=== PATIENT | female | born 1980 | race Caucasian/White ===

== ENCOUNTER 2020-10-02 12:24 | Emergency (ER) | payer OTHER ==
[2020-10-02] MEDS ORDERED: IBUPROFEN 600 MG TAB PO STA (12:46)
[2020-10-02] MEDS ORDERED: ACETAMINOPHEN TAB 500 MG TAB PO STA (12:46)
--- NOTE | 2020-10-02 12:50 | ED ---
General Adult HPI - General Source: patient, RN notes reviewed Mode of arrival: wheelchair Limitations: no limitations <Edilson Pedroza - Last Filed: 10/02/20 12:48> <Arsh Browne - Last Filed: 10/02/20 16:27> - General Stated complaint: Cough, INDU Time Seen by Provider: 10/02/20 12:45 - History of Present Illness Initial comments: 40-year-old female presents emergency Department chief complaint cough congestion. Patient states she's been sick for 2 weeks but states that she started new symptoms last few days. Patient's had fevers or chills body aches cough congestion. Patient does have a history of hyperlipidemia diabetes and hypertension. Patient has not taken any recent Tylenol Motrin for fever. Patient does not know she had a fever currently. (Edilson Pedroza) - Related Data Previous Rx's Medication Instructions Recorded metFORMIN HCL [Glucophage] 500 mg PO BID #30 tab 02/14/15 Allergies Allergy/AdvReac Type Severity Reaction Status Date / Time No Known Allergies Allergy Verified 10/02/20 12:48 Review of Systems ROS Other: All systems not noted in ROS Statement are negative. <Edilson Pedroza - Last Filed: 10/02/20 12:48> ROS Other: All systems not noted in ROS Statement are negative. <Arsh Browne - Last Filed: 10/02/20 16:27> ROS Statement: Those systems with pertinent positive or pertinent negative responses have been documented in the HPI. Past Medical History Past Medical History: Diabetes Mellitus Additional Past Medical History / Comment(s): HX OF NAUSEA AND VOMITING . History of Any Multi-Drug Resistant Organisms: None Reported Past Surgical History: No Surgical Hx Reported Past Anesthesia/Blood Transfusion Reactions: Motion Sickness Additional Past Anesthesia/Blood Transfusion Reaction / Comment(s): PT HAS NEVER HAD ANESTHESIA. Past Psychological History: No Psychological Hx Reported Smoking Status: Never smoker Past Alcohol Use History: Rare Past Drug Use History: None Reported - Past Family History Mother Family Medical History: No Reported History <Edilson Pedroza - Last Filed: 10/02/20 12:48> General Exam Limitations: no limitations General appearance: alert, in no apparent distress Head exam: Present: atraumatic, normocephalic, normal inspection Eye exam: Present: normal appearance, PERRL, EOMI. Absent: scleral icterus, conjunctival injection, periorbital swelling ENT exam: Present: normal exam, normal oropharynx, mucous membranes moist Neck exam: Present: normal inspection, full ROM. Absent: tenderness, meningismus, lymphadenopathy Respiratory exam: Present: normal lung sounds bilaterally. Absent: respiratory distress, wheezes, rales, rhonchi, stridor Cardiovascular Exam: Present: normal rhythm, tachycardia, normal heart sounds. Absent: systolic murmur, diastolic murmur, rubs, gallop, clicks Neurological exam: Present: alert, oriented X3 <Edilson Pedroza - Last Filed: 10/02/20 12:48> General appearance: alert, in no apparent distress Head exam: Present: atraumatic, normocephalic, normal inspection Eye exam: Present: normal appearance, PERRL, EOMI. Absent: scleral icterus, conjunctival injection, periorbital swelling ENT exam: Present: normal exam, mucous membranes moist Neck exam: Present: normal inspection. Absent: tenderness, meningismus, lymphadenopathy Respiratory exam: Present: normal lung sounds bilaterally. Absent: respiratory distress, wheezes, rales, rhonchi, stridor Cardiovascular Exam: Present: regular rate, normal rhythm, normal heart sounds. Absent: systolic murmur, diastolic murmur, rubs, gallop, clicks GI/Abdominal exam: Present: soft, normal bowel sounds. Absent: distended, tenderness, guarding, rebound, rigid Extremities exam: Present: normal inspection, full ROM, normal capillary refill. Absent: tenderness, pedal edema, joint swelling, calf tenderness Back exam: Present: normal inspection Neurological exam: Present: alert, oriented X3, CN II-XII intact Psychiatric exam: Present: normal affect, normal mood Skin exam: Present: warm, dry, intact, normal color. Absent: rash <Arsh Browne - Last Filed: 10/02/20 16:27> Course Vital Signs 10/02/20 12:46 Temperature 102.5 F H Pulse Rate 114 H Respiratory 24 Rate Blood Pressure 109/87 O2 Sat by Pulse 93 L Oximetry Medical Decision Making <Arsh Browne - Last Filed: 10/02/20 16:27> - Medical Decision Making Patient presents with cough and sore throat. She is positive. Her oxygen saturation is acceptable. She has received IV and oral therapy. She is feeling better. She is stable for discharge. (Arsh Browne) - Lab Data Lab Results 10/02/20 Range/Units 12:50 Coronavirus (PCR) Detected A (Not Detectd) Disposition <Edilson Pedroza - Last Filed: 10/02/20 12:48> Is patient prescribed a controlled substance at d/c from ED?: No <Arsh Browne - Last Filed: 10/02/20 16:27> Clinical Impression: COVID-19 Disposition: HOME SELF-CARE Condition: Good Instructions (If sedation given, give patient instructions): Fever in Adults (ED), Coronavirus Disease 2019 (COVID-19) Referrals: Miller Do MD [Primary Care Provider] - 1-2 days
--- NOTE | 2020-10-02 13:29 | XR ---
EXAMINATION TYPE: XR chest 2V DATE OF EXAM: 10/02/2020 COMPARISON: None INDICATION: Fever, cough TECHNIQUE: Frontal and lateral views of the chest are obtained. FINDINGS: The heart size is normal. The pulmonary vasculature is normal. There are patchy infiltrates through the right mid and lower lung field and in the left lower lung fi eld. Minimal infiltrate may be in the left midlung field. Findings are nonspecific but can be compati ble with atypical pneumonia. IMPRESSION: 1. Close clinical correlation recommended for atypical pneumonia. Patchy infiltrates are within the b ilateral mid and lower lung biswas.
[2020-10-02] MEDS ORDERED: dexAMETHasone 4 MG TAB PO STA (15:12)
[2020-10-02] MEDS ORDERED: BAMLANIVIMAB (EUA) 700 MG, ETESEVIMAB (EUA) 1,400 MG in SODIUM CHLORIDE 0.9% 50 ML IVPB ONE (16:00)
[2020-10-02] MEDS ORDERED: SODIUM CHLORIDE 0.9% 50 ML IVPB ONE (16:30)
[2020-10-02 16:52] VITALS: BP 112/88; PULSE 98; RESP 18; TEMP 99
== END 2020-10-02 17:09 | disposition home or self-care (01) ==
LOC: EC 12:24
DX: U07.1 COVID-19 (principal); E11.9 Type 2 diabetes mellitus without complications; I10 Essential (primary) hypertension; E78.5 Hyperlipidemia, unspecified
CPT/HCPCS: 87635; 71046; 99283; 96365; J8540; Q0245

== ENCOUNTER → 2022-12-30 | Outpatient (CLI) | payer OTHER ==
--- NOTE | 2023-01-02 08:07 | MM ---
Reason for Exam: Screening (asymptomatic). Baseline mammogram. Patient History: Menarche at age 10. Last menstrual period: 12/18/2022 Risk Values: Anuradha 5 year model risk: 0.6%. NCI Lifetime model risk: 7.8%. Prior Study Comparison: Patient's first Mammogram. No prior studies available for comparison. Tissue Density: The breast tissue is heterogeneously dense. This may lower the sensitivity of mammography. Findings: Analyzed By CAD. There is an asymmetric density about 10.4 cm from the nipple seen best on the left cc view. Additional views are recommended. No suspicious microcalcifications within either breast. Overall Assessment: Incomplete: need additional imaging evaluation, BI-RAD 0 Management: Diagnostic Mammogram of the left breast. . Patient should continue monthly self-breast exams. A clinical breast exam by your physician is recommended on an annual basis. This exam should not preclude additional follow-up of suspicious palpable abnormalities. Note on Anuradha scores and lifetime risk: 1. A Anuradha score greater than 3% is considered moderate risk. If this is the case, consider specialist referral to assess eligibility for a risk reducing agent. 2. If overall lifetime risk for the development of breast cancer is 20% or higher, the patient may qualify for future screening with alternating mammogram and breast MRI. Electronically signed and approved by: Maciel Castro M.D. Radiologis
== END | disposition home or self-care (01) ==
LOC: RADMAMWWP 10:51
PROVIDERS: ATTEND Family Medicine
DX: Z12.31 Encounter for screening mammogram for malignant neoplasm of breast (principal)
CPT/HCPCS: 77067

== ENCOUNTER → 2023-01-03 | Outpatient (CLI) | payer OTHER ==
--- NOTE | 2023-01-03 18:09 | MM ---
Reason for Exam: Additional evaluation requested from abnormal screening. Last screening mammogram was performed less than 1 month ago. Patient History: Menarche at age 10. Risk Values: Anuradha 5 year model risk: 0.6%. NCI Lifetime model risk: 7.8%. Prior Study Comparison: 12/30/2022 Bilateral MG screening mammo w CAD, [facility]. Tissue Density: Left: There are scattered fibroglandular densities. Findings: Analyzed By CAD. The centrally located asymmetric density is not appreciated on the spot 3-D MLO or 3-D lateral views. Similar appearance on the spot 3-D CC view. Tomograms localize the area inferiorly. Focal island of fibroglandular tissue is suspected. Six-month follow-up recommended. Overall Assessment: Probably benign, BI-RAD 3 Management: Diagnostic Mammogram of the left breast in 6 months. . Results were given to the patient verbally at the time of exam. Patient should continue monthly self-breast exams. A clinical breast exam by your physician is recommended on an annual basis. This exam should not preclude additional follow-up of suspicious palpable abnormalities. Note on Anuradha scores and lifetime risk: 1. A Anuradha score greater than 3% is considered moderate risk. If this is the case, consider specialist referral to assess eligibility for a risk reducing agent. 2. If overall lifetime risk for the development of breast cancer is 20% or higher, the patient may qualify for future screening with alternating mammogram and breast MRI. Electronically signed and approved by: Olinda Grigsby M.D. Radiologist
== END | disposition home or self-care (01) ==
LOC: RADMAMWWP 14:56
PROVIDERS: ATTEND Family Medicine
DX: R92.8 Other abnormal and inconclusive findings on diagnostic imaging of breast (principal)
CPT/HCPCS: 77065; G0279; 77061

== ENCOUNTER → 2023-07-10 | Outpatient (CLI) | payer OTHER ==
--- NOTE | 2023-07-10 13:08 | MM ---
Reason for Exam: Follow-up at short interval from prior study. Last screening mammogram was performed 6 month(s) ago. Patient History: Menarche at age 10. Patient has no children. Premenopausal. Last menstrual period: 07/10/2023 Risk Values: Anuradha 5 year model risk: 0.9%. NCI Lifetime model risk: 11.7%. Prior Study Comparison: 12/30/2022 Bilateral MG screening mammo w CAD, [facility]. 01/03/2023 Left MG 3D work up w/cad , [facility]. Tissue Density: Left: There are scattered fibroglandular densities. Findings: Analyzed By CAD. Asymmetric density central left breast on the CC view middle depth remains unchanged for 6 months. Ongoing short interval follow-up recommended. Otherwise, no significant change. Overall Assessment: Probably benign, BI-RAD 3 Management: Diagnostic Mammogram of both breasts in 6 months. Total one-year follow-up left breast and annual exam of the right breast. Results were given to the patient verbally at the time of exam. Patient should continue monthly self-breast exams. A clinical breast exam by your physician is recommended on an annual basis. This exam should not preclude additional follow-up of suspicious palpable abnormalities. Note on Anuradha scores and lifetime risk: 1. A Anuradha score greater than 3% is considered moderate risk. If this is the case, consider specialist referral to assess eligibility for a risk reducing agent. 2. If overall lifetime risk for the development of breast cancer is 20% or higher, the patient may qualify for future screening with alternating mammogram and breast MRI. Electronically signed and approved by: Olinda Grigsby M.D. Radiologist
== END | disposition home or self-care (01) ==
LOC: RADMAMWWP 12:46
PROVIDERS: ATTEND Family Medicine
DX: R92.322 Mammographic fibroglandular density, left breast (principal)
CPT/HCPCS: 77065; G0279; 77061

== ENCOUNTER → 2024-01-16 | Outpatient (CLI) | payer OTHER ==
--- NOTE | 2024-01-16 13:26 | MM ---
Reason for Exam: Additional evaluation requested from prior study. Last screening mammogram was performed 12 month(s) ago. Patient History: Menarche at age 10. Patient has no children. Premenopausal. Risk Values: Anuradha 5 year model risk: 0.9%. NCI Lifetime model risk: 11.7%. Prior Study Comparison: 12/30/2022 Bilateral MG screening mammo w CAD, [facility]. 01/03/2023 Left MG 3D work up w/cad LT, [facility]. 07/10/2023 Left MG 3D diag mammo w/cad LT, [facility]. Tissue Density: The breasts are heterogeneously dense, which may obscure small masses. Findings: Analyzed By CAD. 1 cm density 16 cm from the nipple at the approximate the left 3:00 position. Ultrasound is advised. No right breast lesion seen. No suspicious calcifications noted. Overall Assessment: Incomplete: need additional imaging evaluation, BI-RAD 0 Management: Diagnostic Breast Ultrasound of the left breast. . Results were given to the patient verbally at the time of exam. Patient should continue monthly self-breast exams. A clinical breast exam by your physician is recommended on an annual basis. This exam should not preclude additional follow-up of suspicious palpable abnormalities. Note on Anuradha scores and lifetime risk: 1. A Anuradha score greater than 3% is considered moderate risk. If this is the case, consider specialist referral to assess eligibility for a risk reducing agent. 2. If overall lifetime risk for the development of breast cancer is 20% or higher, the patient may qualify for future screening with alternating mammogram and breast MRI. Electronically signed and approved by: Maciel Castro M.D. Radiologis
--- NOTE | 2024-01-16 14:19 | USB ---
Reason for Exam: Additional evaluation requested from abnormal screening. Patient History: Menarche at age 10. Patient has no children. Premenopausal. Risk Values: Anuradha 5 year model risk: 0.9%. NCI Lifetime model risk: 11.7%. Technique: Method: Targeted. Prior Study Comparison: 12/30/2022 Bilateral MG screening mammo w [facility], [facility]. 01/03/2023 Left MG 3D work up w/cad LT, [facility]. 07/10/2023 Left MG 3D diag mammo w/cad LT, [facility]. Findings: The lateral section of the breast of the left breast, the axilla of the left breast and the retroareolar of the left breast were scanned. No solid or cystic masses are identified. Recommend MRI for further evaluation. Overall Assessment: Incomplete: need additional imaging evaluation, BI-RAD 0 Management: Diagnostic Breast MRI of both breasts. A clinical breast exam by your physician is recommended on an annual basis and results should be correlated with mammographic findings. This exam should not preclude additional follow-up of suspicious palpable abnormalities. Results were given to the patient verbally at the time of exam. Electronically signed and approved by: Maciel Castro M.D. Radiologis
== END | disposition home or self-care (01) ==
LOC: RADMAMWWP 12:49
PROVIDERS: ATTEND Family Medicine
DX: R92.333 Mammographic heterogeneous density, bilateral breasts (principal); R92.8 Other abnormal and inconclusive findings on diagnostic imaging of breast
CPT/HCPCS: 77066; 76642; G0279; 77062

== ENCOUNTER → 2024-03-29 | Outpatient (CLI) | payer OTHER ==
--- NOTE | 2024-04-01 12:32 | BMR ---
EXAM DATE: 04/01/2024 EXAM DESCRIPTION: MRI-Breast Bilat (W/WO Contrast) INDICATION: Inconclusive MRI and ultrasound. COMPARISON: PRIOR MRIs: None available. Correlation to mammograms: 07/10/2023, 01/16/2024, 12/30/2022, 01/03/2023. Correlation to ultrasound: 01/16/2024. CONTRAST: 11 cc Gadavist IV gadolinium contrast TECHNIQUE: Multiplanar multisequence MR imaging of both breasts was performed with a dedicated breast coil. Images were obtained before and after administration of IV gadolinium, using the standard breast mass protocol. Computer aided detection was utilized for interpretation. FINDINGS: LMP: Postmenopausal General breast composition: There are scattered areas of fibroglandular tissue Background parenchymal enhancement: Mild RIGHT BREAST: The T2 weighted series shows no areas of abnormal signal intensity. Review of the dynamic series shows no early or abnormal enhancement. LEFT BREAST: The T2 weighted series shows no areas of abnormal signal intensity. Review of the dynamic series shows no early or abnormal enhancement. LYMPH NODES: There is no evidence of internal mammary or axillary adenopathy. IMPRESSION: RIGHT BREAST: No MR evidence of malignancy. LEFT BREAST: No MR evidence of malignancy. OVERALL ASSESSMENT -- BI- RADS 1: Negative ANNUAL SCREENING BREAST MRI IN ADDITION TO MAMMOGRAPHY IS RECOMMENDED IN PATIENTS WITH LIFETIME RISK OF BREAST CANCER >20% MTDD
== END | disposition home or self-care (01) ==
LOC: RADMRIMAIN 07:20
PROVIDERS: ATTEND Family Medicine
DX: R92.8 Other abnormal and inconclusive findings on diagnostic imaging of breast (principal)
CPT/HCPCS: C8908; A9585; 77049